=== PATIENT | female | born 1990 | race Caucasian/White ===

== ENCOUNTER 2019-08-23 07:26 | Outpatient (CLI) | payer OTHER, SELFPAY ==
--- NOTE | ~2019-08-23 | CT_ITS ---
EXAMINATION: CT abdomen pelvis w con EXAM DATE: 08/23/2019 08:01 INDICATION: Diarrhea. TECHNIQUE: Spiral CT of the abdomen and pelvis was performed following intravenous injection of 100 m L Omnipaque 350. Axial, coronal and sagittal images were reviewed. The dose-length product (DLP) fo r this examination was 326.72 mGy-cm. The exposure was tailored according to patient size (auto mA e xposure control), and iterative reconstruction (ASIR) was used as additional dose reduction technique . Comparison is made to prior examination from 01/06/2016. FINDINGS: The liver, spleen, adrenal glands and pancreas are unremarkable. There is a 2 cm poorly ca lcified gallstone. Gallbladder otherwise unremarkable. Portal and splenic veins are patent. Kidneys enhance symmetrically. There is no hydronephrosis. There is an IUD which appears to be centered in the endometrial cavity but in the lower uterine segment, position unchanged compared to CT from 2016. The bladder is unremarkable. There is no retroperitoneal or pelvic lymphadenopathy. Small umbilic al fat-containing hernia. The appendix is normal. The stomach and small bowel are unremarkable. There is expected amount of c olonic stool. No free intraperitoneal gas. The heart is normal in size. There are no pericardial or pleural effusions. The lung bases are unremarkable. The bones are unremarkable. IMPRESSION: 1. No acute intra-abdominal findings. 2. IUD in lower uterine segment, unchanged. 3. Small umbilical hernia. 4. Cholelithiasis. Reviewed, dictated and finalized at location B.
== END 2019-08-23 07:27 | disposition home or self-care (01) ==
LOC: ANHIMG 07:32
PROVIDERS: PCP Family Medicine; Visit Provider Family Medicine
DX: R19.7 Diarrhea, unspecified (principal); K52.9 Noninfective gastroenteritis and colitis, unspecified; K80.20 Calculus of gallbladder without cholecystitis without obstruction; K44.9 Diaphragmatic hernia without obstruction or gangrene; Z97.5 Presence of (intrauterine) contraceptive device
CPT/HCPCS: 74177; Q9967

== ENCOUNTER 2020-03-02 21:24 | Observation (INO) | payer OTHER, SELFPAY ==
--- NOTE | ~2020-03-02 | CT_ITS ---
EXAMINATION: CT abdomen pelvis w con DATE: 03/02/2020 23:41 INDICATION: Abdominal pain TECHNIQUE: Computed tomography (CT) of the abdomen and pelvis was performed with 100 cc Omnipaque 350 intravenous contrast. Automated exposure control and iterative reconstruction technique were employe d. Exam dose: 378.52 mGy-cm total exam DLP. COMPARISON: 08/23/2019 CT abdomen pelvis FINDINGS: The lung bases are clear. Normal heart size. No pericardial or pleural effusion. Cholelithiasis, with 1.6 cm stone identified in the gallbladder lumen. No pericholecystic fluid or in flammation. No bile duct dilatation. No hepatic, splenic, pancreatic, adrenal or renal space-occupying mass lesion is detected. No pancrea tic duct dilatation. No urinary tract calculus or hydroureteronephrosis. The urinary bladder is unremarkable. An IUD is noted within the uterus. Moderate fluid within the endometrial cavity. 12 mm peripherally enhancing left ovarian cyst. Normal appendix. There is prominent of fecal material within the colon but no bowel obstruction, radha l wall thickening, pneumatosis or intraperitoneal free air is detected. Fat-containing umbilical hernia. IMPRESSION: Cholelithiasis IUD within uterus; moderate amount of fluid in the endometrial cavity 12 mm peripherally enhancing left ovarian cyst Normal appendix Reviewed, dictated and finalized at Location A. Reviewed, dictated and finalized at location A.
--- NOTE | ~2020-03-02 | US_ITS ---
US right upper quadrant DATE: 03/03/2020 07:39 INDICATION: Abdominal pain TECHNIQUE: Real-time imaging of liver, pancreas, gallbladder areas COMPARISON: 03/02/2020 CT abdomen pelvis 08/23/2019 CT abdomen pelvis FINDINGS: There are multiple filling defects of the gallbladder, with associated shadowing, consisten t with cholelithiasis. There is mild thickening of the gallbladder wall, measuring up to approximately 3 mm thickness. Negat fabian sonographic Segura's sign. The common bile duct measures 3.7 mm, normal. No hepatic or pancreatic space-occupying mass lesion is detected. IMPRESSION: Cholelithiasis; mild thickening of the gallbladder wall Reviewed, dictated and finalized at Location [facility]. Reviewed, dictated and finalized at location A.
[2020-03-02 21:28] VITALS: BP 131/49; PULSE 98; RESP 22; O2SAT 99
[2020-03-02] MEDS: FAMOTIDINE 20 MG/2 ML VIAL IV PUSH (21:36)
[2020-03-02] MEDS: ONDANSETRON INJ 4 MG/2 ML VIAL IV PUSH ×2 (21:36→22:14)
[2020-03-02] MEDS: SODIUM CHLORIDE 0.9% IV 1,000 ML 999 ML IV CONT ×2 (21:36→22:16)
[2020-03-02 21:47] LABS: Basophils Percent Auto 0.3 % (0.2-1.2); Eosinophils Absolute Auto 0.2 K/mm3 (0-0.3); Hematocrit 41.5 % (37.0-47.0); Hemoglobin 13.5 g/dL (12.0-15.0); Immature Granulocyte Absolute 0.03 K/mm3 (0.00-0.031); Immature Granulocyte Percent A 0.3 % (0-0.5); Lymphocytes Percent Auto 42.9 % (18.3-44.2); Mean Corpuscular HGB Conc 32.5 g/dl (32-36); Mean Corpuscular Hemoglobin 26.8 pg (26-34); Mean Corpuscular Volume 82.3 fl (80-100); Mean Platelet Volume 10.9 fl (7.4-10.4); Monocytes Absolute Auto 0.7 K/mm3 (0.1-0.6); Monocytes Percent Auto 7.6 % (2.6-8.5); Neutrophils Absolute Auto 4.6 K/mm3 (1.3-6.7); Neutrophils Percent Auto 46.9 % (45.5-73.1); Platelet Count Result 242 k/mm3 (150-375); Red Blood Count 5.04 M/mm3 (4.2-5.4); Red Cell Distribution Width 13.4 % (11.5-14.5); White Blood Count 9.8 K/mm3 (4.5-10.0)
--- NOTE | 2020-03-02 21:57 | ED.ABDPAIN ---
HPI - Abdominal Pain General Chief Complaint: Abdominal Pain Stated Complaint: vomiting Time Seen by Provider: 03/02/20 21:30 Source: patient and family Mode of arrival: ambulatory Limitations: no limitations History of Present Illness HPI narrative: 29 years old white female presents with sudden onset of mid abdominal pain 30 minutes prior to arrival to the emergency room. Associated with nausea and then vomiting at least 3 times. Pain was 10 out of 10 currently 4 out of 10. Patient reported having similar symptoms for the last few months, had negative EGD and colonoscopy recently, scheduled for gallbladder ultrasound next week. Patient denies any fever, chills, chest pain, shortness of breath, back pain, urinary symptoms, vaginal bleeding or discharge Related Data Home Medications Medication Instructions Recorded Confirmed cariprazine 1.5 mg capsule 1.5 mg PO DAILY 08/15/19 drospirenone 3 mg-ethinyl 1 tablet PO DAILY 08/15/19 estradiol 0.03 mg tablet Allergies Allergy/AdvReac Type Severity Reaction Status Date / Time No Known Allergies Allergy Unknown Verified 03/02/20 21:45 No Known Allergies Allergy unknown Uncoded 08/24/19 16:25 Review of Systems Review of Systems: Narrative: CONSTITUTIONAL: Denies fever, chills, or sweats. EYES: Denies visual changes, redness, or discharge. ENT: Denies rhinorrhea, congestion, sore throat, or otalgia. CARDIOVASCULAR: Denies chest pain, palpitations, or edema. RESPIRATORY: Denies cough or dyspnea. GASTROINTESTINAL: Denies abdominal pain, nausea, vomiting, or diarrhea. GENITOURINARY: Denies dysuria or hematuria. SKIN: Denies rash or itching. MUSCULOSKELETAL: Denies back pain, joint pain, or myalgia. NEUROLOGIC: Denies headache, numbness, or weakness. PSYCHIATRIC: Denies anxiety or depression. [facility] Past Medical History Medical History (Updated 03/03/20 @ 00:39 by Tucker Varela MD) Abdominal pain Abnormal Pap smear of cervix PMDD (premenstrual dysphoric disorder) Surgical History Surgical History (System 08/24/19 @ 16:25 by Caren Borja) H/O LEEP Family History Family History (System 08/24/19 @ 16:25 by Caren Borja) Mother Family history of lymphoma Social History Social History (System 08/24/19 @ 16:25 by Caren Borja) Social History: Smoking status: Never smoker Second hand tobacco smoke exposure: No Alcohol intake: never Substance use: never Substance use type: does not use Gender identity (if verbalized by the patient): Female Exam Narrative: Exam Narrative: General appearance: Well-developed, well-nourished Skin: Normal color Head: Normocephalic, nontraumatic Eyes: Clear conjunctiva ENT: Oropharynx normal, ears normal, nose normal Neck: Supple, nontender Chest and respiratory: Airway patent, no respiratory distress, no accessory muscle use Heart: Regular rate/rhythm Abdomen: Soft, mild tenderness mid abdomen, no guarding or rebound, quiet bowel sounds, no organomegaly, quiet bowel sounds Vascular: Normal peripheral pulses, normal capillary refill. Musculoskeletal: Normal range of motion, nontender back Neurologic: Alert and oriented ?3, LOADER ENGINEER is normal as tested, no gross motor deficit Course Course Emergency Course: Stable Consultations Consultation #1: KYA Date: 03/03/20 Time: 00:38 Vital Signs Vital signs: Vital Signs Pulse Rate 98 03/02/20 21:28 Respiratory Rate 22 H 03/02/20 21:28 Blood Pressure 131/49 L 03/02/20 21:28 Pulse Oximetry 99 03/02/20 21:28 Pulse Rate 98 03/02/20 21:28 Respiratory Rate 22 H 03/02/20 21:28 Blood Pressure 131/49 L 03/02/20 21:28 Pulse Oximetry 99 03/02/20
[2020-03-02 22:06] LABS: Lactic Acid Reflex 1.8 mmol/L (0.7-2.1)
[2020-03-02 22:07] LABS: Alanine Aminotransferase 28 U/L (4-35); Albumin Level 4.5 g/dL (3.5-5.1); Alkaline Phosphatase 78 U/L (38-126); Anion Gap 10 mmol/L (8-16); Aspartate Amino Transferase 46 U/L (14-36); Bilirubin,Total 0.5 mg/dL (0.2-1.3); Blood Urea Nitrogen 16 mg/dL (7-17); Calcium 9.6 mg/dL (8.4-10.2); Carbon Dioxide 22 mmol/L (22-30); Chloride 106 mmol/L (98-107); Estimated CRCL calculation 88 ml/min; Estimated Glomerular Filt Rate > 60; Glucose 126 mg/dL (65-105); Lipase 141 U/L (23-300); Potassium 3.7 mmol/L (3.4-5.0); Sodium 138 mmol/L (137-145)
[2020-03-02] MEDS: HYDROmorphone HCL INJ (*CRX) 1 MG/ML SYR 0.5 MG IV PUSH (22:14)
[2020-03-02 23:00] VITALS: BP 96/63; PULSE 78; RESP 18; O2SAT 99
[2020-03-03] VITALS (10 sets, daily range): BP systolic 92–115; BP diastolic 51–75; PULSE 63–85; RESP 16–19; TEMP 36.4–37; O2SAT 99–100; BMI 26.9
[2020-03-03 00:02] LABS: Add Urine Microscopic? YES; Appearance Urine Clear (Clear); Bacteria Urine Trace /hpf; Bilirubin Urine Negative (Negative); Blood Urine Negative (Negative); Calcium Oxalate Crystals Urine Present /hpf; Color Urine Yellow (Yellow); Glucose Urine UA Negative (Negative); Ketones Urine Negative (Negative); Leukocyte Esterase Ur Negative LEU/UL (Negative); Mucus Urine Rare /lpf; Nitrate Urine Negative (Negative); Protein Urine Negative (Negative); RBC Urine 0-2 /hpf (0-2); Squamous Epithelial Cell Urine Occasional /hpf (Few); WBC Urine 0-3 /hpf
[2020-03-03 00:03] LABS: Specific Grav Ur 1.035 (1.001-1.035)
--- NOTE | 2020-03-03 02:49 | ADMGEN ---
This patient, Tammi Michelle, was admitted to 3 [facility] Surg Room 314-01 at 0240. Patient/family oriented to hospital policies and general routines including ID bracelet, bed and alarms, visiting hours, pain management, procedures, bathroom and other care routines, personal items, smoking policy, room service/diet, and visiting hours. Valuables list has been completed. Information on how to activate the Rapid Response Team has been discussed. Patient/Family are encouraged to report perceived risks to care and to ask questions if they do not understand what they are told or what they should do.
[2020-03-03] MEDS: SODIUM CHLORIDE 0.9% IV 1,000 ML 125 ML IV CONT (03:14)
[2020-03-03] MEDS: HYDROmorphone HCL INJ (*CRX) 1 MG/ML SYR 0.5 MG IV PUSH (03:14)
--- NOTE | 2020-03-03 11:53 | PM.IMHP ---
H&P: HPI History of Present Illness Date/Time: 03/03/20 11:53 Chief complaint: Abdominal pain, cholelithiasis Narrative: Tammi Michelle is a 29 year old female Who presented to the emergency department overnight with complaints of mid abdominal pain with nausea and vomiting. She states that her pain started shortly after eating dinner last night. She has had several episodes like this in the past. It has been about 3 years since her 1st episode began. She does not recall any certain foods that cause these pains. She has tried stain on low-fat diet, but she still occasionally gets pains. She denies any fevers or chills. She does have a history of constipation, but denies any recent changes in bowel habits. Her father had his gallbladder removed. Since being admitted, her severe pain is resolved but she still does have some mild continuous pain. Review of Systems Review of Systems: All systems reviewed & are unremarkable except as noted in HPI and below Constitutional: Constitutional: Denies chills and Denies fever(s) Eyes: Eyes: Denies change in vision ENT: Denies hearing loss, Denies neck pain and Denies sore throat Cardiovascular: Cardiovascular: Denies chest pain and Denies dyspnea Respiratory: Respiratory: Denies cough, Denies dyspnea and Denies wheezing Gastrointestinal: Gastrointestinal: Reports as per HPI Genitourinary: Genitourinary: Denies hematuria and Denies dysuria Musculoskeletal: Musculoskeletal: Denies arthralgias, Denies joint swelling and Denies neck pain Allergic/Immunologic: Allergic/Immunologic: Denies wheezing PMFSH Past Medical History Medical History Abdominal pain Abnormal Pap smear of cervix PMDD (premenstrual dysphoric disorder) Surgical History Surgical History H/O LEEP Family History Family History (Updated 03/03/20 @ 11:56 by Mike Andersen DO) Mother Family history of lymphoma Father Gallbladder disease Social History Social History Social History: Smoking status: Never smoker Second hand tobacco smoke exposure: No Alcohol intake: current Substance use: never Substance use type: does not use Gender identity (if verbalized by the patient): Female Spiritual care concerns: No Meds Home Medications and Allergies Home Medications Medication Instructions Recorded Confirmed Type melatonin 10 mg PO HS PRN 03/03/20 03/03/20 History Allergies Allergy/AdvReac Type Severity Reaction Status Date / Time No Known Allergies Allergy Unknown Verified 03/02/20 21:45 Vital Signs Vital Signs - 24 hr 03/02/20 21:28 03/02/20 23:00 03/03/20 00:00 Temperature Pulse Rate 98 78 66 Respiratory Rate 22 H 18 18 Blood Pressure 131/49 L 96/63 L 100/75 Pulse Oximetry 99 99 99 03/03/20 01:00 03/03/20 02:00 03/03/20 02:35 Temperature Pulse Rate 64 78 63 Respiratory Rate 16 18 19 Blood Pressure 92/51 L 109/55 L 108/63 Pulse Oximetry 100 99 100 03/03/20 02:40 03/03/20 06:00 03/03/20 10:00 Temperature 36.4 C 37.0 C 36.9 C Pulse Rate 64 72 64 Respiratory Rate 16 16 16 Blood Pressure 114/58 L 111/60 115/60 Pulse Oximetry 100 100 100 Exam Const: General: alert; No acute distress Orientation/consciousness: patient oriented x3 Limitations: no limitations HENMT: Head: normocephalic and atraumatic Ears: hearing grossly normal bilaterally General nose exam: Normal external nose present and Normal nares present Mouth: Yes Normal oral and palatal mucosa present and Yes moist mucous membranes Eyes: General: appearance normal, both eyes and all related structures Conjunctivae: conjunctivae normal Sclera: sclerae normal Pupils: Equal, round and reactive pupils present EOM: EOMs intact bilaterally Neck: Neck: normal visual inspection, full ROM, no
[2020-03-04] VITALS (11 sets, daily range): BP systolic 98–116; BP diastolic 46–68; PULSE 60–87; RESP 12–20; TEMP 36.6–37.6; O2SAT 96–100
[2020-03-04 05:58] LABS: Hematocrit 38.8 % (37.0-47.0); Hemoglobin 12.7 g/dL (12.0-15.0); Mean Corpuscular HGB Conc 32.7 g/dl (32-36); Mean Corpuscular Hemoglobin 27.3 pg (26-34); Mean Corpuscular Volume 83.4 fl (80-100); Platelet Count Result 217 k/mm3 (150-375); Red Blood Count 4.65 M/mm3 (4.2-5.4); Red Cell Distribution Width 13.6 % (11.5-14.5)
[2020-03-04 06:13] LABS: Alanine Aminotransferase 119 U/L (4-35); Albumin Level 3.8 g/dL (3.5-5.1); Alkaline Phosphatase 76 U/L (38-126); Anion Gap 4 mmol/L (8-16); Aspartate Amino Transferase 61 U/L (14-36); Bilirubin,Total 0.4 mg/dL (0.2-1.3); Blood Urea Nitrogen 8 mg/dL (7-17); Calcium 8.9 mg/dL (8.4-10.2); Carbon Dioxide 26 mmol/L (22-30); Chloride 107 mmol/L (98-107); Estimated CRCL calculation 87 ml/min; Estimated Glomerular Filt Rate > 60; Glucose 103 mg/dL (65-105); Potassium 4.2 mmol/L (3.4-5.0); Sodium 137 mmol/L (137-145)
--- NOTE | 2020-03-04 06:17 | PC.NURSE ---
0615- OR staff transporting pt from room 314 to OR at this time. Report given to PRESS TENDER SHORT GOODSMOUSTAPHA Gonzalez prior to departure.
--- NOTE | 2020-03-04 06:43 | WPDANESEPPF ---
Anes - Initial Pre Proc Eval Procedure: Operation Date: 03/04/20 07:30 Proposed Procedures p Laparoscopic Cholecystectomy - Mike Andersen DO Date/Time: 03/04/20 06:43 Surgeon: Mike Andersen DO Pre Op Diagnosis: Abdominal pain, cholelithiasis Patient Data Age: 29 Gender: F Height: 5 ft 4 in Weight: 71.2 kg Last Vital Signs Temp 36.6 C 03/04/20 06:41 Pulse 65 03/04/20 06:41 Resp 16 03/04/20 06:41 BP 104/68 03/04/20 06:41 Pulse Ox 100 03/04/20 06:41 Allergies Allergy/AdvReac Type Severity Reaction Status Date / Time No Known Allergies Allergy Unknown Verified 03/02/20 21:45 Home Medications Medication Instructions Recorded Confirmed Type melatonin 10 mg PO HS PRN 03/03/20 03/03/20 History Laboratory Tests 03/04/20 03/04/20 05:34 05:34 WBC 5.0 K/mm3 K/mm3 (4.5-10.0) RBC 4.65 M/mm3 M/mm3 (4.2-5.4) Hgb 12.7 g/dL g/dL (12.0-15.0) Hct 38.8 % % (37.0-47.0) MCV 83.4 fl fl (80-100) MCH 27.3 pg pg (26-34) MCHC 32.7 g/dl g/dl (32-36) RDW 13.6 % % (11.5-14.5) Plt Count 217 k/mm3 k/mm3 (150-375) MPV 11.0 fl H fl (7.4-10.4) Sodium 137 mmol/L mmol/L (137-145) Potassium 4.2 mmol/L mmol/L (3.4-5.0) Chloride 107 mmol/L mmol/L (98-107) Carbon Dioxide 26 mmol/L mmol/L (22-30) Anion Gap 4 mmol/L L mmol/L (8-16) BUN 8 mg/dL D mg/dL (7-17) Creatinine 0.80 mg/dL mg/dL (0.7-1.0) Estim Creat Clear Calc 87 ml/min ml/min Estimated GFR > 60 (59 - ) Glucose 103 mg/dL mg/dL (65-105) Calcium 8.9 mg/dL mg/dL (8.4-10.2) Total Bilirubin 0.4 mg/dL mg/dL (0.2-1.3) AST 61 U/L H U/L (14-36) ALT 119 U/L H U/L (4-35) Alkaline Phosphatase 76 U/L U/L (38-126) Total Protein 7.0 g/dL g/dL (6.3-8.2) Albumin 3.8 g/dL g/dL (3.5-5.1) Patient hx anesthesia problems: none Family hx anesthesia problems: none PMFSH Past Medical History Medical History Abdominal pain Abnormal Pap smear of cervix PMDD (premenstrual dysphoric disorder) Surgical History Surgical History H/O LEEP Family History Family History Mother Family history of lymphoma Father Gallbladder disease Social History Social History Social History: Smoking status: Never smoker Second hand tobacco smoke exposure: No Alcohol intake: current Substance use: never Substance use type: does not use Gender identity (if verbalized by the patient): Female Spiritual care concerns: No Anes - Eval Final PreProcedure Day of Procedure 03/04/20 06:43 Patient weight: overweight Heart: regular rate and rhythm Lungs: clear to auscultation Airway: Mallampati scale class II Neurological: alert and oriented Last oral intake: >/= 8 hours ASA classification: II Emergent: no Anesthetic plan: proceed Anesthesia type and monitoring: general ETT and standard monitoring Informed Consent: The patient's anesthetic plan and its attendant risks and benefits were discussed with the patient/family/POA. Questions were solicited and answers provided to the satisfaction of the patient/family/POA.
[2020-03-04] MEDS: LACTATED RINGERS 1,000 ML 30 ML IV CONT ×2 (06:50→08:42)
[2020-03-04] MEDS: ACETAMINOPHEN 500 MG TABLET 1000 MG PO (06:51)
[2020-03-04] MEDS: SCOPOLAMINE 1.5 MG PATCH TRANSDERM (06:53)
[2020-03-04] MEDS: KETOROLAC 15 MG/ML VIAL (*BKC) IV PUSH (06:53)
--- NOTE | 2020-03-04 07:13 | WPDHPUPDATE1 ---
History and Physical Update Update Date/Time: 03/04/20 07:13 History and Physical has been reviewed, including an updated exam of the patient. There are NO changes in the patient's condition. Risks, benefits, and alternatives have been discussed and questions answered. Patient agrees to proceed with procedure.
--- NOTE | 2020-03-04 07:18 | SUR.PREOP ---
Up to bathroom.
[2020-03-04] MEDS: ceFAZolin 2 GM/D5W 50 ML 2 GM/50 ML BAG IVPB (07:28)
[2020-03-04] MEDS: BUPIVACAINE/EPINEPHRINE 0.5% 30 ML VIAL INFILTRATE (07:28)
--- NOTE | 2020-03-04 08:34 | SUR.OPER ---
EBL:5cc
[2020-03-04] MEDS: fentaNYL CITRATE INJ (*CRX) 100 MCG/2 ML VIAL 25 MCG IV PUSH ×2 (08:59→09:08)
[2020-03-04] MEDS: ONDANSETRON INJ 4 MG/2 ML VIAL IV PUSH (09:04)
--- NOTE | 2020-03-04 09:12 | PM.PROC ---
Procedure Note - Detailed Date of procedure: 03/04/20 Pre-op diagnosis: Abdominal pain, cholelithiasis Post-op diagnosis: other (Cholelithiasis, Ventral hernia) Procedure performed: 1. Laparoscopic Cholecystectomy 2. Ventral hernia repair Description of procedure: Procedure as well as risks, benefits, and alternatives were discussed with patient. Written consent was obtained and placed in chart prior to procedure. The patient was brought back to surgical suite. Patient was placed in supine position on operating table. Time-out was done to confirm patient and procedure. Patient was then intubated by the anesthesia department. Abdomen was prepped and draped in sterile fashion using chlorhexidine prep. 0.5% bupivacaine with epinephrine was infiltrated at each site of incision. An 11 millimeter vertical incision was made at the superior portion of the umbilicus using a 15 blade scalpel. Blunt dissection was carried down to the linea alba. The hernia sac was identified just superior to the umbilicus. This was carefully freed up and excised using electrocautery. A 5 mm hernia was identified at this location just superior to the umbilicus. The fascia was extended approximately 5 mm inferiorly using electrocautery to allow for our port placement. I then bluntly entered into the peritoneal cavity. An 11 millimeter trocar was inserted and cabon dioxied insuflation was used to create a pneumoperitoneum. The camera was inserted and the abdomen was inspected. The patient was placed in reverse Trendelenberg position and rotated slightly to the left. A 5 millimeter incision was made in the epigastric region, and a 5 millimeter trocar was inserted under direct visualization. Two 5 millimeter incisions were made in the right upper quadrant, and two 5 millimeter trocars were inserted under direct visualization. The gallbladder was identified and grasped at the fundus and retracted superiorly. It was then grasped at the infundibulum retracted laterally. Careful dissection around the neck of the gallbladder was performed using blunt dissection with a [place] grasper and hook electrocautery. The cystic duct was identified, and a window was created behind it. The cystic artery was also identified and a window was created behind it. The critical view of safety was identified, visualizing the cystic duct running directly into the neck of the gallbladder, and the cystic artery running directly into the wall of the gallbladder. A 5 millimeter clip field manager was then used to place 2 clips proximally and 1 clip distally on both the cystic duct and cystic artery. They were then both transected using endoscopic scissors. Once safely away from the coleen hepatitis, the gallbladder was dissected free from the liver bed using hook electrocautery. Hemostasis was achieved along the way. The gallbladder was removed completely and then removed through the umbilical port. The liver bed was then inspected. Hemostasis appeared adequate, and our clips appeared secure. The area was gently irrigated with sterile saline. No other abnormalities were seen. The patient was flattened out in bed, and 1 final inspection was made around the abdominal cavity. The ports were then removed under direct visualization, the camera was removed, and the pneumoperitoneum was released. The ventral hernia was then repaired using 0 Ethibond [id number] sutures. Two sutures were placed oriented vertically to adequately approximate the fascia. The repair was inspected and appeared secure. The skin of the incisions was approximated using 4-0 Monocryl subcuticular sutures. Exofin glue was applied on top. The patient was then awakened from anesthesia, extubated, and transferred to recovery. Anesthesia: GETA and local (0.5% bupivicaine with epinephrine) Surgeon: Mike Andersen DO Estimated blood loss (mL): 5 Pathology: yes (Gallbladder) Complications: No immediate complications Condition: stable Di
--- NOTE | 2020-03-04 09:51 | PC.NURSE ---
patient returned from OR per bed
--- NOTE | 2020-03-04 10:56 | PM.DS ---
DS: Admitting Diagnosis Admitting Diagnosis Admitting Diagnosis: Abdominal pain, cholelithiasis DS: Discharge Diagnosis Discharge Diagnosis (1) Cholelithiasis: Qualifiers: Biliary obstruction: without biliary obstruction Cholecystitis presence: without cholecystitis Cholelithiasis location: gallbladder Qualified Code(s): K80.20 - Calculus of gallbladder without cholecystitis without obstruction Code(s): K80.20 - Calculus of gallbladder without cholecystitis without obstruction Status: Acute (2) Ventral hernia: Code(s): K43.9 - Ventral hernia without obstruction or gangrene Status: Acute DS: Summary Hospital Course Reason for hospitalization: Symptomatic cholelithiasis, possible cholecystitis Hospital Course: this is a 29-year-old woman who presented to the emergency department on 03/02/20 with mid abdominal pain with nausea and vomiting. CT in the emergency department showed evidence of cholelithiasis. She had a normal white blood count but mildly elevated transaminases. Her pain was persisting, therefore she was admitted to the hospital for further treatment. On 03/03, her pain had somewhat improved. She was still having some mild persistent pain. A gallbladder ultrasound showed evidence of cholelithiasis with mild gallbladder wall thickening. The patient was given the option of discharged home with a low-fat diet and instructions to follow up for possible surgery verses staying in the hospital and proceeding with laparoscopic cholecystectomy. Since she was having some persistent pain with some nausea, she wished to stay in the hospital and have surgery. On 03/04, she underwent laparoscopic cholecystectomy. She was found to have a small ventral hernia containing fat and this was repaired at the time of surgery. She was then returned to the surgical floor postoperatively. Her diet and activity were advanced as tolerated. She was discharged home once she was tolerating a diet, pain was controlled, vitals were stable, and she was ambulating in the halls. Status at Discharge Functional status at discharge: independent ambulation Overall status at discharge: patient is progressing back to baseline Time Spent with Patient Time attestation: Total time spent providing and/or coordinating discharge services: Time spent: Less than 30 minutes DS: Data Data Completed and Pending Pending studies at discharge: Pending at discharge 03/04/20 07:57 Surgical [PTH] Routine Labs on day of discharge: Labs from last 24 hours 03/04/20 03/04/20 05:34 05:34 WBC 5.0 RBC 4.65 Hgb 12.7 Hct 38.8 MCV 83.4 MCH 27.3 MCHC 32.7 RDW 13.6 Plt Count 217 MPV 11.0 H Sodium 137 Potassium 4.2 Chloride 107 Carbon Dioxide 26 Anion Gap 4 L BUN 8 D Creatinine 0.80 Estim Creat Clear Calc 87 Estimated GFR > 60 Glucose 103 Calcium 8.9 Total Bilirubin 0.4 AST 61 H ALT 119 H Alkaline Phosphatase 76 Total Protein 7.0 Albumin 3.8 Discharge Plan Discharge Attending physician on discharge: Mike Boland Discharging Clinician: Mike Boland Anticipated Discharge Date/Time: 03/04/20 13:00 Patient Disposition: Home, Self-Care Activity: other - see discharge instructions Diet: low fat Wound Care Instructions: other - see discharge instructions Discharge Instructions: DISCHARGE INSTRUCTION SHEET FOR HERNIA, GALLBLADDER AND APPENDIX SURGERIES DR. BOLAND PATIENT TO TAKE HOME 1. May shower in 24 hours, no soaking in bath x 2weeks. 2. Call office for: Wound increasingly painful or bleeding Vomiting Fever of greater than 101 degrees 3. If no bowel movement for three days, take 1 oz. (30 ml) Milk of Magnesia or MiraLax 17g 1 to 2 times daily. 4. No heavy lifting > 10-15 pounds x weeks for hernia repairs and 2 weeks for laparoscopic cholecystectomy or appendectomy. 5. No driving for 3 days or
[2020-03-04] MEDS: HYDROcodone/acetaminophen (*CRX) 5-325 MG TABLET 1 TAB PO (11:21)
== END 2020-03-04 13:19 | disposition home or self-care (01) ==
LOC: ANHED 03-03 00:39 → ANH3MEDSUR 03-03 01:17
PROVIDERS: Emergency Medicine Emergency Medical Services; Admitting Provider Surgery; Emergency Provider Emergency Medicine; PCP Family Medicine; Visit Provider Surgery
PROC: 0FT44ZZ Resection of Gallbladder, Percutaneous Endoscopic Approach (ICD-10-PCS; CPT 47562; principal; 2020-03-04 07:30)
DX: K80.10 Calculus of gallbladder with chronic cholecystitis without obstruction (principal); K43.9 Ventral hernia without obstruction or gangrene
CPT/HCPCS: 47562; 36415; 74177; 76705; 80053; 81001; 81025; 83605; 83690; 85025; 85027; 88304; 96361; 96374; 96375; 96376; 99285; A9270; G0378; J0131; J0690; J1100; J1170; J1885; J2001; J2250; J2405; J2704; J2710; J3010; J7030; J7120; Q9967

== ENCOUNTER → 2020-08-20 02:37 | Outpatient (CLI) | payer OTHER, SELFPAY ==
[2020-08-20 22:46] LABS: SARS-CoV-2 RNA PCR Negative
== END ==
PROVIDERS: PCP Family Medicine; Visit Provider Podiatrist Foot & Ankle Surgery
DX: Z01.812 Encounter for preprocedural laboratory examination (principal); Z20.822 Contact with and (suspected) exposure to COVID-19
CPT/HCPCS: C9803; U0003; U0005

== ENCOUNTER 2020-08-23 00:53 | Day surgery (SDC) | payer OTHER, SELFPAY ==
[2020-08-15 12:25] VITALS: BMI 25.7
[2020-08-23] VITALS (8 sets, daily range): BP systolic 104–126; BP diastolic 63–86; PULSE 57–88; RESP 10–16; TEMP 36.1–36.3; O2SAT 94–100
--- NOTE | ~2020-08-23 | XR_ITS ---
EXAMINATION: XR surgery orthopedic EXAM DATE: 08/23/2020 12:19 INDICATION: Right foot bunionectomy. TECHNIQUE: Fluoroscopy used during XR surgery orthopedic performed by Dr. Gary Landa JR MD. The DAP for this procedure was 4.4 cGycm2. FINDINGS: Frontal, lateral projections demonstrates surgical changes from bunionectomy, distal phala ngeal osteotomy and supporting screw. There is a plate bridging the 1st tarsometatarsal joint. No ella e markers. Correlate with procedure note. IMPRESSION: Fluoroscopy used during right foot bunionectomy. Reviewed, dictated and finalized at location B. ECT SYSTEMS ENGINEER
--- NOTE | 2020-08-23 07:11 | WPDHPUPDATE1 ---
History and Physical Update Update Date/Time: 08/23/20 07:11 History and Physical has been reviewed, including an updated exam of the patient. There are NO changes in the patient's condition. Risks, benefits, and alternatives have been discussed and questions answered. Patient agrees to proceed with procedure.
--- NOTE | 2020-08-23 08:51 | WPDANESEPPF ---
Anes - Initial Pre Proc Eval Procedure: Operation Date: 08/23/20 10:30 Proposed Procedures p Right Foot Lapidus Bunionectomy, Alexy Phalangeal Osteotomy Right Hallux - Gary Landa JR, MD Date/Time: 08/23/20 08:51 Surgeon: Gary Landa JR, MD Pre Op Diagnosis: bunion Right Foot Patient Data Age: 30 Gender: F Height: 5 ft 4 in Weight: 68 kg Allergies Allergy/AdvReac Type Severity Reaction Status Date / Time No Known Allergies Allergy Unknown Verified 08/23/20 08:42 Home Medications Medication Instructions Recorded Confirmed Type No Home Medications 08/15/20 08/15/20 History Patient hx anesthesia problems: none Family hx anesthesia problems: none PMFSH Past Medical History Medical History Abdominal pain Abnormal Pap smear of cervix PMDD (premenstrual dysphoric disorder) Surgical History Surgical History H/O LEEP H/O ventral hernia repair 03/04/2020, done at the same time as lap felipe. Hx laparoscopic cholecystectomy 03/04/2020 Family History Family History Mother Family history of lymphoma Father Gallbladder disease Social History Social History Social History: Smoking status: Never smoker Second hand tobacco smoke exposure: No Alcohol intake: current Substance use: never Substance use type: does not use Living arrangements: with family Gender identity (if verbalized by the patient): Female Spiritual care concerns: No Anes - Eval Final PreProcedure Day of Procedure 08/23/20 08:51 Patient weight: normal Heart: regular rate and rhythm Lungs: clear to auscultation Airway: Mallampati scale class III Neurological: alert and oriented Last oral intake: >/= 8 hours ASA classification: II Emergent: no Anesthetic plan: proceed Anesthesia type and monitoring: general LMA and standard monitoring Informed Consent: The patient's anesthetic plan and its attendant risks and benefits were discussed with the patient/family/POA. Questions were solicited and answers provided to the satisfaction of the patient/family/POA.
[2020-08-23] MEDS: LACTATED RINGERS 1,000 ML 30 ML IV CONT ×2 (09:00→12:41)
[2020-08-23] MEDS: SCOPOLAMINE 1.5 MG PATCH TRANSDERM (10:09)
[2020-08-23] MEDS: ceFAZolin 2 GM/D5W 50 ML 2 GM/50 ML BAG IVPB (10:22)
--- NOTE | 2020-08-23 12:42 | PM.PROC ---
Procedure Note - Detailed Date of procedure: 08/23/20 Pre-op diagnosis: bunion Right Foot Post-op diagnosis: same Procedure performed: 1. Lapidus bunionectomy right foot 2. Alexy phalangeal osteotomy right hallux Implants: 1. [employer] Standard Lapifuse plate with 4 (3.5 Locking) and one (3.5 non locking screw) 2. [employer] 8mm Nitinol compression staple 3. [employer] 4.0mm by 45mm Lag screw Anesthesia: GLMA and local Surgeon: Gary Landa JR, DPM Estimated blood loss (mL): 1 Drains: No Packing: No Pathology: none sent Complications: No immediate complications Condition: stable Disposition: same day Findings: Under mild sedation, the patient was brought to the operating room, placed on the operating table in the supine position. A pneumatic ankle tourniquet was placed about the patient's ankle. Following general anesthesia and a previous popliteal fossa block, the foot was then scrubbed, prepped, and draped in the usual aseptic manner. An Esmarch bandage was then used to examine the patient's foot and pneumatic ankle tourniquet was then inflated. Surgery began in the following manner. Attention was directed to the dorsal aspect of the 1st metatarsocuneiform of the foot where fluoroscopy was used to identify the joint. A 3 cm incision was made overlying the dorsal aspect of the 1st metatarsocuneiform joint of the foot just medial to the extensor hallucis longus tendon. The incision was then continued deep down through the subcutaneous tissues using sharp and blunt dissection. All bleeders were ligated and cauterized as necessary. At this point, the extensor tendon was identified and reflected laterally. Next, the periosteum and capsular incision was made at the full length of the skin incision exposing the medial cuneiform as well as the base of the 1st metatarsal. Next, a sagittal bone saw was introduced from dorsal to plantar across the 1st metatarsocuneiform joint in order to free up any ankylosed portions of the joint and also to release any adhesions. Two Steinmann Pins were driven from dorsal to plantar 1cm proximal and distal to the 1st metatarsal cuneiform joint. The provided curved osteotome and curette was used to resect the cartilage and subchondral bone and a 2.0mm drill bit was used to fenestrate the joint to promote fusion. At this point, a small 2 cm incision was made along the lateral aspect of the 1st metatarsophalangeal joint of the right foot and a lateral release consisting of a lateral capsule incision as well as release of the adductor hallucis tendon with the tenotomy as well as releasing the distal aspect and lateral aspect and proximal aspect of the fibular sesamoid. After this, a lateral release was performed. The hallux was noted to be slightly reduced as far as the track-bound hallux. A 3m incision was made medial to the first metatarsal head extending proximal to the proximal phalanx. A 1.4mm Steinmann pin was driven from medial to lateral across the 1st metatarsal head. Next the Lapifuse positioner was used to obtain 3 plane correction of the hallux abductovalgus deformity. Fluoroscopy was used to make sure that the 1st MPJ was congruous and the sesamoid apparatus was centered under the first metatarsal. Next a 4mm cannulated screw was driven from the medial base of the 1st metatarsal to the central and lateral cuneiform bone. Excellent compression was noted, next a Lapifuse plate was placed dorsal medially along the 1st metatarsal cuneform joint and 4 locking and one eccenrically drilled non locking screws was used to further compress the joint to ensure arthrodesis. At this point the positioner was removed and fluroscopy was used to make sure that deformity correction was maintained. The patient still had slight hallux abductus so I made a closing medial base wedge resection from the base of the proximal phalanx and compressed the osteotomy with a [employer] 8mm nitinol compression
[2020-08-23] MEDS: fentaNYL CITRATE INJ (*CRX) 100 MCG/2 ML VIAL 25 MCG IV PUSH ×6 (12:59→13:49)
[2020-08-23] MEDS: ONDANSETRON INJ 4 MG/2 ML VIAL IV PUSH (14:12)
[2020-08-23] MEDS: oxyCODONE HCL (*CRX) 5 MG TAB IR PO (14:20)
== END 2020-08-23 14:55 | disposition home or self-care (01) ==
PROVIDERS: PCP Family Medicine; Visit Provider Podiatrist Foot & Ankle Surgery
PROC: (CPT 28299; principal; 2020-08-23 10:30)
DX: M21.611 Bunion of right foot (principal)
CPT/HCPCS: 28298; A9270; C1713; C9290; C9803; J0690; J1100; J2250; J2405; J2704; J3010; J7120; U0003; U0005

== ENCOUNTER 2024-07-11 11:58 | Outpatient (CLI) | payer OTHER, SELFPAY ==
--- OUTSIDE RECORDS SUMMARY | 2024-07-11 12:55 | XMS_ITS | Encounter Summary ---
Author Organization [facility] Healthcare Address [address] [place] [address] Care Team Providers Care Clarifier Operator Name Role Phone Clinic, Pcp Primary Care Provider Elo Grimes MD Primary Care Provider Juan Chang MD PhD Unavailable [phone] Encounter Details Date Type Department Care Team (Late st Contact Info) Description 02/27/2020 Telephone [facility] Radiology at [facility] Medicine [address] [place] [address] Caro Sampson RDMS Social History Tobacco Use Types Packs/Day Years Used Date Smoking Tobacco: Never Smokeless Tobacco: Never Alcohol Use Standard Drinks/Week Comments Yes 0 (1 standard drink = 0.6 oz pur e alcohol) PHQ-2 Answer Date Recorded PHQ-2 Total Score (If total score is 3 or more points, staff should administer the PHQ-9) 0 12/26/2019 Comments No Sex and Gender Information Value Date Recorded Sex Assigned at Not on file Legal Sex Female 8:18 AM CDT Gender Identity Female 02/04/2022 4:33 PM CDT Sexual Orientation Straight 04/22/2021 9: 59 AM WAITER/WAITRESS [employer] 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
--- OUTSIDE RECORDS SUMMARY | 2024-07-11 12:55 | XMS_ITS | Referral Summary ---
Author Organization [facility] Address [address] [place] [address] Phone Care Team Providers Care Raised Printer Name Role Phone Elo Lovell MD Primary Care Provider Juan Chang MD PhD Unavailable [phone] Encounters Date Type Department Care Team Description 05/05/2024 11:59 PM SPECIAL EDUCATION PROFESSIONAL Anesthesia Event [facility] Operating Room [facility] [address] [place] [address] Sonia Mills NP 04/17/2024 9:30 AM SPECIAL EDUCATION PROFESSIONAL - 04/17/2024 11:59 PM SPECIAL EDUCATION PROFESSIONAL Hospital Encounter [facility] [address] [place] [address] Pain in right foot Discharge Disposition: Discharge to home or self care 04/17/2024 9:20 AM SPECIAL EDUCATION PROFESSIONAL Office Visit [facility] Orthopaedic Surgery [address] [facility] 2[address] [place] [address] Kendell Kwan MD Pain in right foot (Primary Dx) from Last 3 Months Allergies Active Allergy Reactions Criticality Noted Date Comments Latex Blisters High 11/12/2023 Norethindrone Acetate Other (See comments) High 04/08/2023 depression with suicidal ideation Medications FLUoxetine (PROzac) 20 mg capsuleIndications :depression Take 2 capsules (40 mg total) by mouth every morning 08/06/19 24 Active traZODone (DESYREL) 50 mg tabletIndications: Insomnia Take 1 tablet (50 mg total) by mouth nightly Active ondansetron ODT (ZOFRAN-ODT) 4 mg disintegrating tablet Take 1 tablet (4 mg total) by mouth every 8 (eight) hours as needed for nausea or vomiting 07/02/19 24 Active polyethylene glycol (MIRALAX) 17 gram/dose bulk powder Take 17 g by mouth daily 116 g 11/12/19 24 Active Additional Information Patient taking differently:17 g oralDaily (early AM), Indications: constipation, Informant: Self, Reported on 04/26/2024 methocarbamoL (ROBAXIN) 750 mg tabletIndications: Pelvic Pain Take 1 tablet (750 mg total) by mouth 3 (three) times a day Start taking at night, and then if tolerated, increase to 3x/day. 30 tablet 3 11/23/19 24 Active Additional Information Patient taking differently:750 mg oralNightly, Start taking at night, and then if tolerated, increase to 3x/day., Indications: Pelvic Pain, Informant: Self, Reported on 04/26/2024 Trulance 3 mg tablet Take 1 tablet (3 mg total) by mouth as needed (constipation) 02/25/20 Active Active Problems Problem Noted Date Diagnosed Date Acquired hallux varus 04/18/2024 Chronic pelvic pain in female 08/12/2023 Endometriosis 08/12/2023 Abdominal pain, epigastric 02/05/2022 Overview (02/05/2022): Added automatically from request for surgery [id number] Nausea 02/05/2022 Overview (02/05/2022): Added automatically from request for surgery [id number] Rectal bleeding 02/05/2022 Overview (02/05/2022): Added automatically from request for surgery [id number] Change in bowel habits 02/05/2022 Overview (02/05/2022): Added automatically from request for surgery [id number] Rash and other nonspecific skin eruption 022 11/24/2022 Umbilical hernia without obstruction and without gangrene 05/21/2021 Overview (05/21/2021): Added automatically from request for surgery [id number] Incisional hernia, without obstruction or gangre ne 05/21/2021 Overview (05/21/2021): Added automatically from request for surgery [id number] Cervical dysplasia 09/15/2017 Overview (09/15/2017): Added automatically from request for surgery [id number] High grade squamous intraepi thelial lesion on cytologic smear of cervix (HGSIL) 09/13/2017 Hypotropia of right eye 04/28/2017 Keratosis pilaris 08/07/2016 Melanocytic nevi of face 08/07/2016 Melanocytic nevi of scalp and neck 08/07/2016 Multiple benign nevi of uppe r and lower extremities, and trunk 08/07/2016 High-risk 01/24/2013 Overview (10/04/2020): Overview: with adoption planned 01/24/2013 Abnormal liver function test 12/16/2012 Overview (10/04/2020): Overview: October 25, 2012: AST - 130 ALT - 261 Normal GB scan Hep B and C - non-reactive October 25, 2012: AST - 130 ALT - 261 Normal GB scan Hep B and C - non-reactive Depression 12/16/2012 Social History Tobacco Use Types Packs/Day Years Used Date Smoking Tobacco: Never Passive Smoke Exposure: Never Smokeless Tobacco: Never Tobacco Cessation:Counseling Given: Not Answered Alcohol Use Standard Drinks/Week Comments Yes 0 (1 standard drink = 0.6 oz pur e alcohol) AUDIT-C Answer Date Recorded Q1: How often do you have a drink containing alc ohol? 2-4 times a month 04/26/2024 Q2: How many drinks containi ng alcohol do you have on a typical day when you are drinking? 1 or 2 04/26/2024 Q3: How often do you have si x or more drinks on one occasion? Never 04/26/2024 PHQ-2 Answer Date Recorded PHQ-2 Total Score (If total score is 3 or more points, staff should administer the PHQ-9) 0 12/26/2019 Personal Safety Answer Date Recorded Have you ever been in or are you currently in a harmful physical or emotional relationship or is someone making you feel afraid or unsafe? 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 Not on file Not on file Not on file Last Filed Vital Signs Vital Sign Reading Time Taken Comments Blood Pressure 104/68 12/07/2023 11:00 AM CDT Pulse 70 11/12/2023 4:50 PM CDT Temperature 36.8 ??C (98.2 ??F) 11/12/2023 4:50 PM CD T Respiratory Rate 14 11/12/2023 4:50 PM CDT Oxygen Saturation 93% 11/12/2023 4:50 PM CDT Inhaled Oxygen Concentration - - Weight 69.4 kg (153 lb) 04/26/2024 3:45 PM SPECIAL EDUCATION PROFESSIONAL Height 162.6 cm (5' 4 ) 04/26/2024 3:45 PM SPECIAL EDUCATION PROFESSIONAL Body Mass Index 26.26 04/26/2024 3:45 PM SPECIAL EDUCATION PROFESSIONAL Plan of Treatment Not on file Medical Devices Implanted Type Area Brine Well Operator Device Identifier Shelf Expiration Date Model / Serial / Lot [employer] [id number] [facility] Sepra 6x4in Monofilament Absorbable Low Profile Latex Free - [id number] Implanted:Qty: 1 on 07/17/2021 by Juan Chang MD PhD at [facility] Mesh N/A: Abdomen [employer]/C R Bard [id number] 02/08/2023 [id number] / / [id number] Procedures Procedure Name Priority Date/Time Associated Diagnosis Comments XR FOOT RIGHT 3 OR MORE VIEWS Schedule Routine, Read Routine (OP Routine) 04/17/2024 9:42 AM SPECIAL EDUCATION PROFESSIONAL Pain in right foot HIGH RISK HPV DNA DETECTION WITH GENOTYPING Routine 02/08/2023 10:58 AM CDT Well woman exam with routine gynecological exam from Last 3 Months or Most Recently Relevant to Health Maintenance Results * XR Foot Right 3+ View (04/17/2024 9:42 AM SPECIAL EDUCATION PROFESSIONAL) Anatomical Region Laterality Modality Lower Extremities, Foot Right Computed Radiography 04/17/2024 10:0 6 AM SPECIAL EDUCATION PROFESSIONAL Impressions 04/17/2024 10:06 AM SPECIAL EDUCATION PROFESSIONAL 1. 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 2. ??Lucency surrounding the lag screw is unchanged from 04/05/2023. Electronically signed by: Stone Henderson M.D. Narrative 04/17/2024 10:06 AM SPECIAL EDUCATION PROFESSIONAL EXAMINATION: XR FOOT RIGHT 3 OR MORE VIEWS HISTORY: This yes 10 confirm a surgical drain are of the thyroid with a preliminary anywhere else this year but has done thousand almost one a day and increased really wasted resources (millimeter (surgery abdominal aorta ( COMPARISON: 04/05/2023 FINDINGS: Again seen are changes of healed, internally fixated right proximal phalanx osteotomy and 1st tarsometatarsal joint arthrodesis with proximal phalanx staple, 1st tarsometatarsal joint plate and screws, and Lisfranc interval lag screw. ??Segmentation appears intact, including unchanged mildly proud screw at the mid aspect of the plate. ??Mild lucency surrounding the lag screw suggestive of loosening, new from 2020 but unchanged from 04/05/2023. ??There is no acute fracture. ??Mild, unchanged hallux varus. 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 Procedure Note Stone Henderson MD - 04/17/2024 EXAMINATION: XR FOOT RIGHT 3 OR MORE VIEWS HISTORY: This yes 10 confirm a surgical drain are of the thyroid with a preliminary anywhere else this year but has done thousand almost one a day and increased really wasted resources (millimeter (surgery abdominal aorta ( COMPARISON: 04/05/2023 FINDINGS: Again seen are changes of healed, internally fixated right proximal phalanx osteotomy and 1st tarsometatarsal joint arthrodesis with proximal phalanx staple, 1st tarsometatarsal joint plate and screws, and Lisfranc interval lag screw. Segmentation appears intact, including unchanged mildly proud screw at the mid aspect of the plate. Mild lucency surrounding the lag screw suggestive of loosening, new from 2020 but unchanged from 04/05/2023. There is no acute fracture. Mild, unchanged hallux varus. 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 IMPRESSION: 1. 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 2. Lucency surrounding the lag screw is unchanged from 04/05/2023. Electronically signed by: Stone Henderson M.D. Kendell Kwan MD IMG XR PROCEDURES Jeny l Result * High Risk HPV DNA Detection with Genotyping (Molecular component) (02/08/2023 10:58 AM CDT) HPV HR 16 Not Detected Not Detected HATTIE Comment:Testing performed by : [facility], [address] [place]., [address] HPV HR 18 Not Detected Not Detected HATTIE Comment:Testing performed by : [facility], [address] [place]., [address] HPV HR Non 16/18 Not Detected Not Detected HATTIE Comment: Interpretive Data Nucleic acid amplification for detection of high-risk Human Papilloma virus (HPV) is performed by the Viki Bryce 6800 HPV test. ??This assay specifically detects HPV-16 and HPV-18 genotypes. ??The following HPV genotypes are detected as high-risk HPV: ?? HPV-31, 33, 35, ,39, 45, 51, 52, 56, 58, 59, 66, and 68. ??This assay has been approved by the [place] Food and Drug Administration for detection of HPV in cervical specimens collected by a physician using an endocervical brush/spatula or cervical broom and placed in the ThinPrep Pap Test PreservCyt collection containers. ??The performance characteristics of this test have been verified by the [facility] Molecular Infectious Disease laboratory. Correlate with separately reported cytology results, as applicable. Interpretive data last revised 22 Testing performed by: [facility], [address] [place]., [address] Endocervical 02/08/2023 10:5 8 AM CDT 02/09/2023 2:48 PM CDT Narrative HATTIE - 02/10/2023 2:50 AM CDT Clinical history and diagnosis->screening Number of vials->1 Testing type->Screening Last menstrual period (date if known)->01/25/2023 Khushboo Friedman MD LAB BODY FLUIDS AND STOOLS ORD ERABLES Final Result Performing Organization Address City/State/[facility] Co de Phone Number [facility] [address] [facility] Department [place] [address] from Last 3 Months or Most Recently Relevant to Health Maintenance Insurance [facility] CHOICE PLUS [facility] ACCESS CHOICE [facility] CHOICE PLUS [facility] CHOICE PLUS Advance Directives For more information, please contact: [phone] * Full Code (Latest Code Status on File) Date Activated Date Inactivated Comments 03/04/2022 7:04 AM 03/04/2022 1:17 PM * Full Code Date Activated Date Inactivated Comments 02/13/2020 11:39 AM 02/13/2020 6:30 PM * Full Code Date Activated Date Inactivated Comments 09/30/2017 10:07 AM 09/30/2017 1:09 PM Care Teams Raised Printer Relationship Specialty Start Date End Date Elo Lovell MD [address] [place] [address] PCP - General Family Medicine 02/27/21 Juan Chang MD PhD [address] [place] [address] Referring Physician General Surgery 07/17/21
--- OUTSIDE RECORDS SUMMARY | 2024-07-11 12:55 | XMS_ITS | Clinical Summary ---
Author Organization [facility] Address [address] [place] [address]. [place], [place] [address] [place] [address] Care Team Providers Care Structural Metal Worker Name Role Phone Elo Lovell MD Primary Care Provider [phone] Allergies No known active allergies Medications cyclobenzaprine (FLEXERIL) 5 MG tablet Take 1 tablet (5 mg total) by mouth nightly as needed. Active FLUoxetine (PROZAC) 20 MG capsule Take 2 capsules (40 mg total) by mouth daily. 3 Active traZODone (DESYREL) 50 MG tablet Take 1 tablet (50 mg total) by mouth nightly as needed. 3 Active ondansetron (ZOFRAN-ODT) 4 MG disintegrating tablet Take 1 tablet (4 mg total) by mouth every 8 (eight) hours as needed for Nausea. 20 tablet 4 Active Family History Medical History Relation Comments No Known Problems Father Cancer Mother Relation Status Comments Father Mother Social History Tobacco Use Types Packs/Day Years Used Date Smoking Tobacco: Never Smokeless Tobacco: Never Alcohol Use Standard Drinks/Week Comments Not Currently 0 (1 standard drink = 0.6 oz pur e alcohol) Comments No Sex and Gender Information Value Date Recorded Sex Assigned at Not on file Legal Sex Female 3:31 PM CDT Gender Identity Not on file Sexual Orientation Not on file Last Filed Vital Signs Vital Sign Reading Time Taken Comments Blood Pressure 114/72 01/11/2024 12:27 PM CDT Pulse 74 01/11/2024 12:27 PM CDT Temperature 36.6 ??C (97.8 ??F) 01/11/2024 12:27 PM C DT Respiratory Rate 16 01/11/2024 12:27 PM CDT Oxygen Saturation 100% 01/11/2024 12:27 PM CDT Inhaled Oxygen Concentration - - Weight 70.3 kg (155 lb) 01/11/2024 12:27 PM CDT Height 162.6 cm (5' 4 ) 01/11/2024 12:27 PM CDT Body Mass Index 26.61 01/11/2024 12:27 PM CDT Plan of Treatment Health Maintenance Due Date Last Done Comments Annual Physical 1993 Hepatitis C 2008 DTaP, Tdap and Td Vaccines ( 1 - Tdap) 2009 Hepatitis B Vaccines (1 of 3 - 19+ 3-dose series) 2009 COVID-19 Vaccine (2023-2 5 season) 2024 Influenza Adult (#1) 2024 HPV Vaccines Aged Out No longer eligi ble based on patient's age to complete this topic Meningococcal B Vaccine Aged Out No l onger eligible based on patient's age to complete this topic Meningococcal Vaccine Aged Out No nithya bonny eligible based on patient's age to complete this topic Pneumococcal Vaccine: Pediat rics (0 to 5 Years) and At-Risk Patients (6 to 64 Years) Aged Out No longer eligible b ased on patient's age to complete this topic RSV Immunizations Under 20 Months Aged Out No longer eligible based on patient's age to complete this topic Insurance Care Teams Structural Metal Worker Relationship Specialty Start Date End Date Rostovtsevdeepa, Elo, MD [address] [facility] [place] [address] PCP - General FAMILY PRACTICE 01/12/22
--- OUTSIDE RECORDS SUMMARY | 2024-07-11 12:56 | XMS_ITS | Clinical Summary ---
Author Organization [facility] Address [address] [place] [address] Phone Care Team Providers Care Button Station Worker Name Role Phone Elo Lovell MD Primary Care Provider Juan Chang MD PhD Unavailable [phone] Allergies Active Allergy Reactions Criticality Noted Date Comments Latex Blisters High 11/12/2023 Norethindrone Acetate Other (See comments) High 08/2023 depression with suicidal ideation Medications FLUoxetine (PROzac) [...] increase to 3x/day. 30 tablet 3 11/23/19 Active Additional Information Patient taking differently:750 mg [...] (02/05/2022): Added automatically from request for surgery [id number] Nausea 02/05/2022 Overview (02/05/2022): Added automatically from request for surgery [id number] Rectal bleeding 02/05/2022 Overview (02/05/2022): Added automatically from request for surgery [id number] Change in bowel habits 02/05/2022 Overview (02/05/2022): Added automatically from request for surgery [id number] Rash and other nonspecific skin eruption 022 11/24/2022 Umbilical hernia without obstruction and without gangrene 05/21/2021 Overview (05/21/2021): Added automatically from request for surgery [id number] Incisional hernia, without obstruction or gangre ne 05/21/2021 Overview (05/21/2021): Added automatically from request for surgery [id number] Cervical dysplasia 09/15/2017 Overview (09/15/2017): Added automatically from request for surgery [id number] High grade squamous intraepi thelial lesion on [...] B and C - non-reactive Depression 12/16/2012 Encounters Date Type Department Care Team Description 05/05/2024 11:59 PM HOTEL DINING ROOM CASHIER Anesthesia Event [facility] Operating [facility] ([facility]) [address] [place] [id number] Sonia Mills NP 04/17/2024 9:30 AM HOTEL DINING ROOM CASHIER - 04/17/2024 11:59 PM HOTEL DINING ROOM CASHIER Hospital Encounter [facility] [id number] [place] [id number] Pain in right foot Discharge Disposition: Discharge to home or self care 04/17/2024 9:20 AM HOTEL DINING ROOM CASHIER Office Visit [facility] Orthopaedic Surgery [address] [place] [address] [address] [place] [id number] Kendell Kwan MD Pain in right foot (Primary Dx) from Last 3 Months Surgical History Surgery Date Site/Laterality Comments LASER ABLATION OF THE CERVIX 06/14/2017 - 06/13/2018 CHOLECYSTECTOMY 06/14/2019 - 06/13/2020 HERNIA REPAIR 06/14/2019 - 06/13/2020 BUNIONECTOMY 06/14/2020 - 06/13/2021 FLUORO GUIDED INJECTION ANKLE RIGHT 08/11/2021 Right COLONOSCOPY 06/14/2019 - 06/13/2020 UPPER GASTROINTESTINAL ENDOSCOPY 06/14/2021 - 06/13/2022 HYSTERECTOMY 06/14/2023 - 06/13/2024 EYE MUSCLE SURGERY 06/14/2009 - 06/13/2010 repair Medical History Medical History Date Comments Depression 12/16/2012 Cervical dysplasia 09/15/2017 PONV (postoperative nausea a nd vomiting) scop patch helps some, also gets zofran Motion sickness Family History Medical History Relation Name Comments Endometriosis Mother Cancer Other Kidney disease Other Anesthesia problems Neg Hx Breast cancer Neg Hx Colon cancer Neg Hx Ovarian cancer Neg Hx Pancreatic cancer Neg Hx Prostate cancer Neg Hx Uterine cancer Neg Hx Relation Name Status Comments Mother Other Social History Tobacco Use Types Packs/Day Years [...] Sexual Orientation Straight 04/22/2021 9: 59 AM HOTEL DINING ROOM CASHIER 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 Not on file Not on file Not on file Obstetrics History Para Term AB IAB SAB Ectopic Multiple Livin g Live Births 1 1 1 1 Date Outcome GA Total Labor Labor/2nd/3rd Weight Sex Type Anes PTL Teresa A1 A5 Name Clin Term Last Filed Vital Signs Vital Sign Reading Time Taken Comments Blood Pressure 104/68 12/07/2023 11:00 AM CDT Pulse 70 11/12/2023 4:50 PM CDT Temperature 36.8 ??C (98.2 ??F) 11/12/2023 4:50 PM CD T Respiratory Rate 14 11/12/2023 4:50 PM CDT Oxygen Saturation 93% 11/12/2023 4:50 PM CDT Inhaled Oxygen Concentration - - Weight 69.4 kg (153 lb) 04/26/2024 3:45 PM HOTEL DINING ROOM CASHIER Height 162.6 cm (5' 4 ) 04/26/2024 3:45 PM HOTEL DINING ROOM CASHIER Body Mass Index 26.26 04/26/2024 3:45 PM HOTEL DINING ROOM CASHIER Plan of Treatment Health Maintenance Due Date Last Done Comments Hepatitis C Screening 1990 DTaP/Tdap/Td Vaccine (1 - Tdap) 2001 Varicella Vaccines (1 of 2 - 13+ 2-dose series) 2003 Hepatitis B Screening 2008 Depression Screening 12/25/2020 12/26/2019 Regular Well Visit/Exam 18-64 02/09/2024 02/08/2023, 02/04/2022, 12/26/2019, Additional history exists Covid-19 Vaccine ( season) 2024 06/28/2021, 11/19/2020, 10/22/2020 Influenza Vaccine (#1) 2024 Cervical Cancer Screening Discontinued 2022, 02/08/2023, 02/04/2022 HPV Vaccines Aged Out No longer eligi ble based on patient's age to complete this topic Pneumococcal vaccine <65 Aged Out No longer eligible based on patient's age to complete this topic Medical Devices Implanted Type Area Repairer Screen Crusher Device Identifier Shelf Expiration Date Model / Serial / Lot [employer] [id number] Vent[address]ight [address] Sepra 6x4in Monofilament Absorbable Low Profile Latex Free - [id number] Implanted:Qty: 1 on 07/17/2021 by Juan Chang MD PhD at [facility] Mesh N/A: Abdomen [employer]/C R Bard [id number] 02/08/2023 [id number] / / [id number] Procedures Procedure Name Priority Date/Time Associated Diagnosis Comments XR FOOT RIGHT 3 OR MORE VIEWS Schedule Routine, Read Routine (OP Routine) 04/17/2024 9:42 AM HOTEL DINING ROOM CASHIER Pain in right foot HIGH RISK HPV DNA DETECTION WITH GENOTYPING Routine 02/08/2023 10:58 AM CDT Well woman exam with routine gynecological exam from Last 3 Months or Most Recently Relevant to Health Maintenance Results * XR Foot Right 3+ View (04/17/2024 9:42 AM HOTEL DINING ROOM CASHIER) Anatomical Region Laterality Modality Lower Extremities, Foot Right Computed Radiography 04/17/2024 10:0 6 AM HOTEL DINING ROOM CASHIER Impressions 04/17/2024 10:06 AM HOTEL DINING ROOM CASHIER 1. 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 2. ??Lucency surrounding the lag screw is unchanged from 04/05/2023. Electronically signed by: Stone Henderson M.D. Narrative 04/17/2024 10:06 AM HOTEL DINING ROOM CASHIER EXAMINATION: XR FOOT RIGHT 3 OR MORE [...] HR 16 Not Detected Not Detected HATTIE HARLEY Comment:Testing performed by : [facility], [address] [facility]., [address] HPV HR 18 Not Detected Not Detected HATTIE Comment:Testing performed by : [facility], [address] [place]., [address] HPV HR Non 16/18 Not Detected Not [...] this test have been verified by the [facility] Molecular Infectious Disease laboratory. Correlate with separately reported cytology results, as applicable. Interpretive data last revised 22 Testing performed by: [facility], [address] [place]., [address] Endocervical 02/08/2023 10:5 8 AM CDT 02/09/2023 2:48 PM CDT Narrative HATTIE - 02/10/2023 2:50 AM CDT Clinical history and diagnosis->screening Number of vials->1 Testing type->Screening Last menstrual period (date if known)->01/25/2023 Khushboo Friedman MD LAB BODY FLUIDS AND STOOLS ORD ERABLES Final Result [facility] [address] [facility] Department [place] [address] from Last 3 Months or Most Recently Relevant to Health Maintenance Insurance [facility] CHOICE PLUS [facility] ACCESS CHOICE [facility] CHOICE PLUS [facility] CHOICE PLUS Advance Directives For more information, please contact: [phone] * Full Code (Latest Code Status on File) Date Activated Date Inactivated Comments 03/04/2022 7:04 AM 03/04/2022 1:17 PM * Full Code Date Activated Date Inactivated Comments 02/13/2020 11:39 AM 02/13/2020 6:30 PM * Full Code Date Activated Date Inactivated Comments 09/30/2017 10:07 AM 09/30/2017 1:09 PM Care Teams Button Station Worker Relationship Specialty Start Date End Date Elo Lovell MD [address] [facility] [address] [place] [address] PCP - General Family Medicine 02/27/21 Juan Chang MD PhD [address] [facility] [address] [place] [address] Referring Physician General Surgery 07/17/21
[2024-07-11 13:26] LABS: Influenza A QL RT-PCR Positive (Negative); Influenza B QL RT-PCR Negative (Negative); RSV RNA, RT-PCR Negative (Negative); SARS-CoV-2 RNA PCR Negative (Negative)
== END 2024-07-11 11:59 | disposition home or self-care (01) ==
PROVIDERS: PCP Family Medicine; Visit Provider Physician Assistant
DX: R05.9 Cough, unspecified (principal); J02.9 Acute pharyngitis, unspecified
CPT/HCPCS: 87637